=== PATIENT | female | born 1950 | race Caucasian/White ===

== ENCOUNTER → 2021-02-27 | Outpatient (CLI) | payer BC, MEDICARE ==
[~2021-02-27] MED LIST: CIPRO500 MG PO; NORCO 5-325 TA1 EACH PO
== END ==
LOC: RAD 08:43
DX: K21.00 Gastro-esophageal reflux disease with esophagitis, without bleeding (principal); K44.0 Diaphragmatic hernia with obstruction, without gangrene
CPT/HCPCS: 74240

== ENCOUNTER → 2021-08-05 | Outpatient (CLI) | payer MEDICARE, BC ==
[2021-08-05 10:55] LABS: BUN/CREATININE RATIO 17 (0-10)
== END ==
LOC: LAB 08:16
PROVIDERS: Internal Medicine Hematology & Oncology
DX: C49.A2 Gastrointestinal stromal tumor of stomach (principal)
CPT/HCPCS: 36415; 71046; 80053

== ENCOUNTER → 2021-08-13 | Outpatient (CLI) | payer MEDICARE, BC | LOC: CT 12:13 | DX: C49.A2 Gastrointestinal stromal tumor of stomach (principal) | CPT/HCPCS: 36415; Q9967 ==

== ENCOUNTER 2021-10-13 15:06 | Emergency (ER) | payer MEDICARE, BC | END 2021-10-13 18:40 | disposition home or self-care (01) | LOC: ER1 15:06 | DX: S32.039A Unspecified fracture of third lumbar vertebra, initial encounter for closed fracture (principal); S32.059A Unspecified fracture of fifth lumbar vertebra, initial encounter for closed fracture; I10 Essential (primary) hypertension; E78.5 Hyperlipidemia, unspecified; F17.200 Nicotine dependence, unspecified, uncomplicated; Z88.0 Allergy status to penicillin; Z88.5 Allergy status to narcotic agent; W01.10XA Fall on same level from slipping, tripping and stumbling with subsequent striking against unspecified object, initial encounter; Y92.009 Unspecified place in unspecified non-institutional (private) residence as the place of occurrence of the external cause | CPT/HCPCS: 70450; 71045; 72125; 72131; 73030; 73502; 73552; 99284 ==

== ENCOUNTER → 2022-01-11 | Outpatient (CLI) | payer MEDICARE, BC | LOC: LAB 09:40 | DX: Z20.822 Contact with and (suspected) exposure to COVID-19 (principal) | CPT/HCPCS: U0002 ==